=== PATIENT | male | born 1950 | race Two or more races ===

== ENCOUNTER 2025-03-20 06:12 | Inpatient (IN) | payer OTHER, MEDICARE ==
[2025-03-18 11:35] LABS: Nucleated Red Blood Cells % 0.0 %
[2025-03-18 11:36] LABS: Hematocrit 29.9 % (41.0-53.0); Hemoglobin 10.0 g/dL (13.5-17.5); Mean Corpuscular Hemoglobin 26.4 pg (28.0-32.0); Mean Corpuscular Volume 79.2 fL (80.0-100.0)
[2025-03-18 11:40] LABS: Urine Protein, UAD Negative (Negative)
[2025-03-18 11:49] LABS: INR 1.07 (0.9-1.15); Partial Thromboplastin Time 32.1 SEC (24.5-34.5); Prothrombin Time 11.3 sec (9.3-11.8)
[2025-03-18 12:07] LABS: Albumin 4.0 g/dL (3.2-4.8); Alkaline Phosphatase 88 U/L (46-116); Anion Gap 9 (5-15); BUN/Creatinine Ratio 5.9 (10.0-20.0); Bilirubin, Total 0.3 mg/dL (0.2-1.0); Calcium 9.5 mg/dL (8.7-10.4); Carbon Dioxide 26 mmol/L (20-31); Chloride 102 mmol/L (98-107); Glucose 96 mg/dL (74-106); Potassium 4.8 mmol/L (3.5-5.1); Sodium 137 mmol/L (136-145); Total Protein 7.0 g/dL (5.7-8.2)
[2025-03-18 12:08] LABS: Alanine Aminotransferase < 9 U/L (7-40); Blood Urea Nitrogen 5 mg/dL (9-23)
[2025-03-20] VITALS (16 sets, daily range): BP systolic 139–178; BP diastolic 61–85; PULSE 67–105; RESP 12–25; TEMP 97.6; O2SAT 91–99
[~2025-03-20] VITALS: Ht 175.3 cm; Wt 60.5 kg
[~2025-03-20 06:12] MED LIST: FERR-7 PO; GABA300C PO; HYDR1TAB97 PO; LISI20TA56 PO; TRAM50TA2 PO
[2025-03-20] MEDS ORDERED: ONDANSETRON HCL 4 MG/2 ML VIAL ONE ×2 (08:02→09:11)
[2025-03-20] MEDS ORDERED: LIDOCAINE 1% INJ PF 5ML AMP ONE (08:02)
[2025-03-20] MEDS ORDERED: ETOMIDATE (2MG/ML) 20ML VIAL IV ONE (08:02)
[2025-03-20] MEDS ORDERED: SODIUM CHLORIDE LOCK 40 ML ONE (08:02)
[2025-03-20] MEDS ORDERED: fentaNYL CITRATE 100 MCG/2 ML VL ONE (08:02)
[2025-03-20] MEDS ORDERED: ROCURONIUM 10MG/ML 10ML VIAL IV ONE ×2 (08:02→09:11)
[2025-03-20] MEDS ORDERED: LIDOCAINE HCL 2% TOP JELLY 5ML TOP ONE (08:02)
[2025-03-20] MEDS ORDERED: MIDAZOLAM HCL 2MG/2ML 2ml VIAL (1mg/ml) ONE ×2 (08:02→08:22)
[2025-03-20] MEDS ORDERED: KETAMINE 50mg/ML 1ml syringe ONE (08:02)
[2025-03-20] MEDS ORDERED: HYDROmorphone HCL 2 MG/ML VL/or syr ONE ×2 (08:02→08:22)
[2025-03-20] MEDS ORDERED: PROPOFOL 10 MG/ML 20 ML IV ONE (08:44)
[2025-03-20] MEDS ORDERED: hydrALAZINE HCL 20 MG/ML VL IV PRN ×2 (09:00→10:15)
[2025-03-20] MEDS ORDERED: MORPHINE SULFATE 4 MG/ML SYR/VIAL IV PRN (09:00)
[2025-03-20] MEDS ORDERED: MIDAZOLAM HCL 2MG/2ML 2ml VIAL (1mg/ml) IV PRN ×2 (09:00→10:15)
[2025-03-20] MEDS ORDERED: ONDANSETRON HCL 4 MG/2 ML VIAL IV PRN ×3 (09:00→10:15)
[2025-03-20] MEDS: BUPIVACAINE 0.5% P/F INJ 10 ML VIAL ONE (09:40)
[2025-03-20] MEDS ORDERED: SUGAMMADEX 200mg/2ml Vial (100MG/ML) IV ONE (09:43)
[2025-03-20] MEDS ORDERED: LABETALOL HCL 20 MG/4 ML VL IV SCH (10:15)
[2025-03-20] MEDS: HYDROmorphone HCL 2 MG/ML VL/or syr IV PRN ×2 (10:16→14:15)
[2025-03-20] MEDS: ACETAMINOPHEN IV 100 ML IV ONE (10:23)
[2025-03-20] MEDS ORDERED: LABETALOL HCL 20 MG/4 ML VL IV PRN ×2 (10:45→16:00)
[2025-03-20] MEDS: ACETAMINOPHEN IV 1000 MG/100ML (10MG/ML) IV ONE (10:47)
--- NOTE | 2025-03-20 11:11 | DVHOP ---
DATE OF SURGERY: 03/20/2025 PREOPERATIVE DIAGNOSIS: Dysplasia, left colon. POSTOPERATIVE DIAGNOSIS: Left colon cancer with metastasis. SURGEON: Tong Garcia MD RETURNED MATERIALS INSPECTOR: Francois Moreau NP. ANESTHESIA: General endotracheal. ANESTHESIOLOGIST: Dr. Maza. PROCEDURES: * Exploratory laparotomy. * Left hemicolectomy. * Colocolostomy. DESCRIPTION OF PROCEDURE: Under general endotracheal anesthesia with the patient's skin prepped and draped, a midline incision was made. Visual and manual inspection of the abdominal cavity was undertaken. Exploration revealed several lesions in the left and right lobes of the liver. The patient also had a very large tumor in the mid descending colon which was tattooed by the high school principal during a colonoscopic examination in the recent past. The colon was mobilized by incision along the white line of Toldt. The mesocolon was then divided between clamps and ligated. The descending colon just distal to the splenic flexure was transected with a KIMBERLY stapler as was the mid sigmoid rectal segment and the specimen was then removed from the field. There was a peritoneal implant which was excised for biopsy separately. The incision was purposely left small and in the lower abdomen and for this reason the hepatic lesions which were palpably malignant were not accessible for biopsy. The colon was then anastomosed by stapled anastomosis between the descending colon and the rectosigmoid segment utilizing the KIMBERLY stapler through small colotomy. Colotomies and the defect in the colon were closed likewise with a stapling device. Mesocolic defect was approximated using 2-0 Monocryl suture. The anastomosis was palpated and appeared to be widely patent. By propelling contents of the colon through the anastomosis, there was no evidence of leakage. A 10-mm Berhane-Fitzgerald drain was then placed to the vicinity, but not abutting against the anastomosis. The abdomen and pelvis were irrigated. Irrigant was aspirated. Hemostasis was meticulously accomplished and found to be complete. Closure was accomplished utilizing #1 double-stranded PDS suture and metallic skin shirlene. The drain was secured through a separate incision with a 3-0 nylon suture. The patient remained stable throughout the procedure, left the operating room following an accurate needle and sponge count. His was thoroughly informed in the waiting room. She was told that the lesion is visibly and palpably malignant and that there was evidence of metastatic implants throughout the peritoneal cavity which were not necessarily accessible by palpation due to the small incision in the lower abdomen. She requested that I do not tell the patient. She wants to tell him herself what the findings were. MD AIYANA Vuong/MORENO/ANNIE TID: [id number] RECEIPT: [id number]
[2025-03-20] MEDS: ceFAZolin 2 GM/D5W50ml 50 ML IV ONE (11:34)
[2025-03-20] MEDS: LIDOCAINE W/ EPINEPHRINE 1% 20ML VIAL ONE (11:35)
[2025-03-20] MEDS: POVIDONE IODINE 10 % TOPICAL OINT 30GM TOP ONE (11:35)
[2025-03-20] MEDS: D5W/SOD CHL 0.45%/KCL 20MEQ 1,000 ML IV SCH ×2 (11:43→17:07)
[2025-03-20] MEDS: levETIRAcetam 500 mg/100ml 100 ML IV SCH (12:10)
[2025-03-20] MEDS: ceFAZolin 2 GM/D5W50ml 50 ML IV SCH (13:53)
[2025-03-20] MEDS ORDERED: NITROGLYCERIN 0.4 MG SL TAB SL PRN ×2 (15:45)
[2025-03-20] MEDS ORDERED: MORPHINE SULFATE INJ 2 MG/ml SYRG IV PRN ×2 (15:45)
--- NOTE | 2025-03-20 15:49 | DVHHP2 ---
Review of Systems Allergies: Coded Allergies: NO KNOWN ALLERGIES (Unverified , 03/18/25) Medications Current Medications Medications Dose Ordered Sig/Lester Route Start Time Stop Time Status Last Admin Dose Admin Labetalol HCl 10 mg ONCE IV 03/20/25 10:15 UNV Cefazolin Sodium/ Dextrose 50 ml @ 50 mls/hr Q8HR IV 03/20/25 14:00 03/20/25 13:53 50 MLS/HR Metronidazole 100 ml @ 100 mls/hr Q8HR IV 03/20/25 14:00 03/20/25 13:43 100 MLS/HR Ondansetron HCl 4 mg Q4HPRN PRN IV 03/20/25 10:00 Levetiracetam 100 ml @ 400 mls/hr BID IV 03/20/25 10:00 03/20/25 12:10 400 MLS/HR Labetalol HCl 10 mg [id number] PRN IV 03/20/25 10:45 03/20/25 23:59 Nitroglycerin 0.4 mg Q5MINP PRN SL 03/20/25 15:45 UNV Morphine Sulfate 2 mg Q30M PRN IV 03/20/25 15:45 UNV Nitroglycerin 0.4 mg Q5MINP PRN SL 03/20/25 15:45 UNV Morphine Sulfate 2 mg Q30M PRN IV 03/20/25 15:45 UNV Potassium Chloride/Dextrose/ Sod Cl 1,000 ml @ 100 mls/hr Q10H IV 03/20/25 15:45 UNV Morphine Sulfate 2 mg Q4HPRN PRN IV 03/20/25 15:45 UNV Ondansetron HCl 4 mg Q6HPRN PRN IV 03/20/25 15:45 UNV Exam Vital Signs Vital Signs Date Time Temp Pulse Resp B/P (MAP) Pulse Ox O2 Delivery O2 Flow Rate FiO2 03/20/25 15:00 89 15 136/72 (93) 100 03/20/25 09:55 Mask 9.0 03/20/25 09:55 97.8 97.8 03/20/25 09:55 99 Labs/Xrays Labs Test 03/18/25 11:20 Range/Units White Blood Count 7.7 4.4-10.8 10^3/uL Red Blood Count 3.77 L 4.5-5.90 10^6/uL Hemoglobin 10.0 L 13.5-17.5 g/dL Hematocrit 29.9 L 41.0-53.0 % Mean Corpuscular Volume 79.2 L 80.0-100.0 fL Mean Corpuscular Hemoglobin 26.4 L 28.0-32.0 pg Mean Corpuscular Hemoglobin Concent 33.3 32.0-36.0 g/dL Red Cell Distribution Width 17.1 H 11.8-14.3 % Platelet Count 176 140-450 10^3/uL Mean Platelet Volume 8.8 6.9-10.8 fL Neutrophils (%) (Auto) 74.6 37.0-80.0 % Lymphocytes (%) (Auto) 17.0 10.0-50.0 % Monocytes (%) (Auto) 7.4 0.0-12.0 % Eosinophils (%) (Auto) 0.8 0.0-7.0 % Basophils (%) (Auto) 0.2 0.0-2.0 % Neutrophils # (Auto) 5.7 1.6-8.6 10 ^3/uL Lymphocytes # (Auto) 1.3 0.4-5.4 10 ^3/uL Monocytes # (Auto) 0.6 0-1.3 10 ^3/uL Eosinophils # (Auto) 0.1 0-0.8 10 ^3/uL Basophils # (Auto) 0 0-0.2 10 ^3/uL Nucleated Red Blood Cells 0.0 % Prothrombin Time 11.3 9.3-11.8 sec Prothrombin Time INR 1.07 0.9-1.15 Activated Partial Thromboplast Time 32.1 24.5-34.5 SEC Urine Color Light-yellow Yellow Urine Clarity Clear Clear Urine pH 6.0 5.0-9.0 Urine Specific Lind 1.006 1.001-1.035 Urine Protein Negative Negative Urine Ketones Negative Negative Urine Blood Negative Negative /uL Urine Nitrite Negative Negative Urine Bilirubin Negative Negative Urine Urobilinogen Normal Negative mg/dL Urine Leukocyte Esterase Negative Negative /uL Urine RBC None seen 0 - 3 /hpf Urine Microscopic WBC 1 0-3 /HPF Urine Squamous Epithelial Cells None seen <5 /hpf Urine Bacteria None seen None Seen /hpf Urine Glucose Normal Normal mg/dL Sodium Level 137 136-145 mmol/L Potassium Level 4.8 3.5-5.1 mmol/L Chloride Level 102 98-107 mmol/L Carbon Dioxide Level 26 20-31 mmol/L Anion Gap 9 5-15 Blood Urea Nitrogen 5 L 9-23 mg/dL Creatinine 0.85 0.700-1.30 mg/dL Glomerular Filtration Rate Calc 90 >90 mL/min BUN/Creatinine Ratio 5.9 L 10.0-20.0 Serum Glucose 96 74-106 mg/dL Calcium Level 9.5 8.7-10.4 mg/dL Total Bilirubin 0.3 0.2-1.0 mg/dL Aspartate Amino Transferase (AST) 11 L 13-40 U/L Alanine Aminotransferase (ALT) < 9 7-40 U/L Alkaline Phosphatase 88 46-116 U/L Total Protein 7.0 5.7-8.2 g/dL Albumin 4.0 3.2-4.8 g/dL SEPSIS Sepsis Screen Physician Orders Oxygen By Face Mask (03/20/25 08:55) Oxygen By Nasal Cannula (03/20/25 08:55) Physics Faculty Member (03/20/25 08:55) Notify Anesth. For Changes: (03/20/25 08:55) Pulse Ox Assessment (03/20/25 08:55) May Have Head Of Bed Up (03/20/25 08:55) Continue Present Iv (03/20/25 08:55) Follow Iv With Surgeon Orders (03/20/25 08:55) Discharge To Room Per Criteria (03/20/25 08:55) Npo Except Ice Chips (03/20/25 09:55) Ng To Lcs (03/20/25 09:55) Abdominal Binder (03/20/25 09:55) Hima To Bulb Suction (03/20/25 09:55) Sequential Compression Device (03/20/25 09:55) D5w/Sod Chl 0.45%/Kcl 20meq (03/20/25 10:00) Cefazolin 2 Gm/G9r67nm (Ancef) (03/20/25 14:00) Metronidazole 500mg/100ml (Flagyl 500mg/ (03/20/25 14:00) Ondansetron Hcl (Zofran) (03/20/25 10:00) Levetiracetam 500 Mg/100ml (Levetiraceta (03/20/25 10:00) Call/Page Hospitalist/Atten Fo (03/20/25 09:55) Page Hospitalist For Admission (03/20/25 09:55) Insert Jiménez Catheter QSHIFT (03/20/25 09:55) Labetalol Hcl (Labetalol Hcl) (03/20/25 10:45) Transfer Orders (03/20/25 14:08) Admit (03/20/25 15:42) Nitroglycerin Sublingual (Ntrostat Subli (03/20/25 15:45) Morphine Sulfate Injection (03/20/25 15:45) Stat Ekg For Chest Pain (03/20/25 15:42) Notify Md Of Changes From Base (03/20/25 15:42) Psychological Operations Specialist For 24 Hours (03/20/25 15:42) Emergency Dysrhythmia Protocol (03/20/25 15:42) Rhythm Strips Once Every Shift (03/20/25 15:42) Oxygen By Nasal Cannula (03/20/25 15:42) Admit (03/20/25 15:41) Oxygen By Nasal Cannula (03/20/25 15:41) Nitroglycerin Sublingual (Ntrostat Subli (03/20/25 15:45) Morphine Sulfate Injection (03/20/25 15:45) Stat Ekg For Chest Pain (03/20/25 15:41) Notify Md Of Changes From Base (03/20/25 15:41) Psychological Operations Specialist For 24 Hours (03/20/25 15:41) Emergency Dysrhythmia Protocol (03/20/25 15:41) Rhythm Strips Once Every Shift (03/20/25 15:41) D5 1/2 Ns Potassium 20meq (03/20/25 15:45) Morphine Sulfate Injection (03/20/25 15:45) Ondansetron Hcl (Zofran) (03/20/25 15:45) Pantoprazole (Protonix) (03/21/25 10:00) Complete Blood Count (03/21/25 06:00) Comprehensive Metabolic Panel (03/21/25 06:00) Chest Portable (03/21/25 06:00) Labetalol Hcl (Labetalol Hcl) (03/20/25 16:00) Vital Signs Date Time Temp Pulse Resp B/P (MAP) Pulse Ox O2 Delivery O2 Flow Rate FiO2 03/20/25 15:00 89 15 136/72 (93) 100 03/20/25 14:30 89 19 147/94 (111) 100 03/20/25 14:00 86 13 141/71 (94) 100 03/20/25 13:30 88 12 138/78 (98) 97 03/20/25 12:40 90 12 125/65 (85) 99 03/20/25 12:10 90 15 125/65 (85) 94 03/20/25 11:40 91 15 178/73 (108) 100 03/20/25 11:10 99 14 145/65 (91) 96 03/20/25 10:58 101 20 155/77 03/20/25 10:40 91 15 178/73 (108) 100 03/20/25 10:30 87 15 173/79 03/20/25 10:25 112 18 194/85 (121) 100 03/20/25 10:16 109 22 190/74 03/20/25 10:10 109 22 190/74 (112) 100 03/20/25 10:05 101 28 200/91 (127) 99 03/20/25 10:00 91 25 197/88 (124) 94 03/20/25 09:55 91 22 99 Mask 9.0 03/20/25 09:55 97.8 81 22 188/93 (124) 99 97.8 03/20/25 09:55 Mask 9.0 99 Medications Medications Dose Ordered Sig/Lester Route Start Time Stop Time Status Last Admin Dose Admin Acetaminophen 1,000 mg ONCE ONCE IV 03/20/25 10:15 03/20/25 10:26 DC 03/20/25 10:47 1,000 MG Bupivacaine HCl 10 ml STK-MED ONCE .ROUTE 03/20/25 08:00 03/20/25 07:57 DC 03/20/25 09:40 5 ML Cefazolin Sodium/ Dextrose 50 ml @ 50 mls/hr Q8HR IV 03/20/25 14:00 03/20/25 13:53 50 MLS/HR Hydromorphone HCl 0.5 mg Q10M PRN IV 03/20/25 09:00 03/20/25 09:41 DC 03/20/25 10:58 0.5 MG Hydromorphone HCl 0.5 mg Q10M PRN IV 03/20/25 12:30 03/20/25 12:31 DC 03/20/25 14:15 0.5 MG Levetiracetam 100 ml @ 400 mls/hr BID IV 03/20/25 10:00 03/20/25 12:10 400 MLS/HR Metronidazole 100 ml @ 100 mls/hr Q8HR IV 03/20/25 14:00 03/20/25 13:43 100 MLS/HR Potassium Chloride/Dextrose/ Sod Cl 1,000 ml @ 120 mls/hr Q8H20M IV 03/20/25 10:00 03/20/25 15:48 DC 03/20/25 11:43 120 MLS/HR Assessment/Plan Assessment/Plan see dictated note Plan discussed with: Patient, Spouse My Orders Orders - ARUN TORRES MD Procedure Category Date Status Time Admit ADMIT 03/20/25 Transmitted 15:42 Nitroglycerin PHA 03/20/25 Logged Sublingual (Ntrostat 15:45 Morphine Sulfate PHA 03/20/25 Logged Injection 15:45 Stat Ekg For Chest LEATHA 03/20/25 In Process Pain 15:42 Notify Md Of Changes LEATHA 03/20/25 In Process From Base 15:42 Psychological Operations Specialist For LEATHA 03/20/25 In Process 24 Hours 15:42 Emergency Dysrhythmia LEATHA 03/20/25 In Process Protocol 15:42 Rhythm Strips Once LEATHA 03/20/25 In Process Every Shift 15:42 Oxygen By Nasal RT 03/20/25 Transmitted Cannula 15:42 Admit ADMIT 03/20/25 Transmitted 15:41 Oxygen By Nasal RT 03/20/25 Transmitted Cannula 15:41 Nitroglycerin PHA 03/20/25 Logged Sublingual (Ntrostat 15:45 Morphine Sulfate PHA 03/20/25 Logged Injection 15:45 Stat Ekg For Chest LEATHA 03/20/25 In Process Pain 15:41 Notify Md Of Changes [facility] [place] 03/20/25 In Process From Base 15:41 Psychological Operations Specialist For LEATHA 03/20/25 In Process 24 Hours 15:41 Emergency Dysrhythmia LEATHA 03/20/25 In Process Protocol 15:41 Rhythm Strips Once LEATHA 03/20/25 In Process Every Shift 15:41 D5 1/2 Ns Potassium PHA 03/20/25 Transmitted 20meq 15:45 Morphine Sulfate PHA 03/20/25 Transmitted Injection 15:45 Ondansetron Hcl PHA 03/20/25 Transmitted (Zofran) 15:45 Pantoprazole PHA 03/21/25 Transmitted (Protonix) 10:00 Complete Blood Count LAB 03/21/25 Verified 06:00 Comprehensive LAB 03/21/25 Verified Metabolic Panel 06:00 Chest Portable XY 03/21/25 Logged 06:00 Labetalol Hcl PHA 03/20/25 Verified (Labetalol Hcl) 16:00 Date of Service: Mar 20, 2025 Billing Provider: ARUN TORRES MD Common Visit Codes: [id number] INP/OBS CARE (HIGH) ARUN TORRES MD Mar 20, 2025 15:49
--- NOTE | 2025-03-20 15:51 | CODING ---
Date of Service: Mar 20, 2025 Billing Provider: ARUN TORRES MD Common Visit Codes: [id number] INP/OBS CARE (HIGH) Secondary Visit Codes: [id number] CARE PLAN 30 MINUTES ARUN TORRES MD Mar 20, 2025 15:51
--- NOTE | 2025-03-20 16:03 | DVHHP ---
ADMIT DATE: 03/20/2025 HISTORY OF PRESENT ILLNESS: The patient is a 75-year-old gentleman who was admitted after he underwent surgery for left hemicolectomy for left colon cancer with metastasis. The patient denies pain in the left lower quadrant. No chest pain, no shortness of breath, no nausea or vomiting. REVIEW OF REST OF SYSTEMS: Otherwise currently negative. PAST MEDICAL HISTORY: Significant for hypertension, PTSD, likely seizure disorder. MEDICATIONS: Listed include gabapentin, [place], lisinopril. ALLERGIES: No known drug allergies. SOCIAL HISTORY: Denies smoking or alcohol. Lives at home with his . FAMILY HISTORY: Negative. PHYSICAL EXAMINATION: GENERAL: The patient is awake, alert. VITAL SIGNS: Temperature of 97.8, pulse of 90 per minute, blood pressure 138/78. SHEENT: Unremarkable. NECK: There is no JVD. No pedal edema. LUNGS: Equal bilaterally. No added sounds. CARDIOVASCULAR: S1 and S2 regular. No murmurs. ABDOMEN: Soft. Bowel sounds are absent. There is RAÚL drains in place. NEUROLOGIC: Nonfocal. MUSCULOSKELETAL: Normal. ASSESSMENT AND PLAN: * Hypertension for which he will be placed on as-needed labetalol. * Seizure disorder. * Posttraumatic stress disorder. * Colon cancer, status post hemicolectomy for which he will be placed on IV fluids along with pain medications. * Advanced care planning: The patient is a full code-Time spent was 18 minutes. MD CINDY Clemons/RORY TID: [id number] RECEIPT: [id number] [facility]
[2025-03-20] MEDS: MORPHINE SULFATE INJ 2 MG/ml SYRG IV PRN (17:17)
[2025-03-20] MEDS: MORPHINE SULFATE INJ 2 MG/ml SYRG IV ONE (20:22)
[2025-03-20] MEDS: hydrALAZINE HCL 20 MG/ML VL IV PRN (21:20)
[2025-03-21] VITALS (28 sets, daily range): BP systolic 101–166; BP diastolic 52–134; PULSE 62–109; RESP 10–26; TEMP 97.7–98.7; O2SAT 93–100
--- NOTE | 2025-03-21 05:41 | DVH ---
CHEST RADIOGRAPH Indication: htn Technique: Single frontal view of the chest was obtained COMPARISON: XY CHEST TWO VIEWS ROUTINE on DOS: 03/18/25 FINDINGS: Lines and Tubes: Enteric catheter side port at the GE junction Lungs: Bibasilar subsegmental atelectasis Pleura: No effusion. No pneumothorax. Cardiomediastinal contours: Unremarkable Bones: Unremarkable IMPRESSION: Recommend advancement of enteric catheter by 3 cm.
[2025-03-21] MEDS: ONDANSETRON HCL 4 MG/2 ML VIAL IV PRN (05:56)
[2025-03-21 06:36] LABS: Hemoglobin 10.3 g/dL (13.5-17.5); Nucleated Red Blood Cells % 0.0 %
[2025-03-21 06:41] LABS: Hematocrit 30.7 % (41.0-53.0); Mean Corpuscular Hemoglobin 26.3 pg (28.0-32.0); Mean Corpuscular Volume 78.5 fL (80.0-100.0)
[2025-03-21 06:53] LABS: Alkaline Phosphatase 78 U/L (46-116); Anion Gap 11 (5-15); Calcium 9.2 mg/dL (8.7-10.4); Carbon Dioxide 26 mmol/L (20-31); Potassium 4.2 mmol/L (3.5-5.1); Total Protein 6.2 g/dL (5.7-8.2)
[2025-03-21 06:54] LABS: Albumin 3.7 g/dL (3.2-4.8)
[2025-03-21 07:00] LABS: BUN/Creatinine Ratio 6.8 (10.0-20.0); Blood Urea Nitrogen < 5 mg/dL (9-23); Chloride 98 mmol/L (98-107); Glucose 149 mg/dL (74-106); Sodium 135 mmol/L (136-145)
[2025-03-21 07:01] LABS: Alanine Aminotransferase < 9 U/L (7-40); Bilirubin, Total 0.3 mg/dL (0.2-1.0)
[2025-03-21] MEDS ORDERED: SORE THROAT SPRAY 6OZ BOTTLE MT PRN (09:15)
[2025-03-21] MEDS ORDERED: PROMETHAZINE-DM 5 ML ORAL SYRUP NG PRN (09:15)
--- NOTE | 2025-03-21 09:31 | DVHPN2 ---
Progress Note Date Seen: Mar 21, 2025 Medical Necessity Reason Pt with a Central, PICC or Fol: No Objective vital signs Vital Sign Date Time Temp Pulse Resp B/P (MAP) Pulse Ox O2 Delivery O2 Flow Rate FiO2 03/21/25 08:00 98.0 85 21 142/60 (87) 96 98.0 03/20/25 20:00 Nasal Cannula* 2 28 Total Intake and Output 03/20/25 03/20/25 03/21/25 15:00 23:00 07:00 Intake Total 820 ml 930 ml Output Total 340 ml 500 ml 1000 ml Balance -340 ml 320 ml -70 ml medications Current Medications Medications Dose Ordered Sig/Lester Route Start Time Stop Time Status Last Admin Dose Admin Labetalol HCl 10 mg ONCE IV 03/20/25 10:15 UNV Cefazolin Sodium/ Dextrose 50 ml @ 50 mls/hr Q8HR IV 03/20/25 14:00 03/21/25 06:36 50 MLS/HR Metronidazole 100 ml @ 100 mls/hr Q8HR IV 03/20/25 14:00 03/21/25 05:51 100 MLS/HR Levetiracetam 100 ml @ 400 mls/hr BID IV 03/20/25 10:00 03/20/25 21:00 400 MLS/HR Labetalol HCl 10 mg [id number] PRN IV 03/20/25 10:45 03/20/25 23:59 Cancel Nitroglycerin 0.4 mg Q5MINP PRN SL 03/20/25 15:45 Morphine Sulfate 2 mg Q30M PRN IV 03/20/25 15:45 Potassium Chloride/Dextrose/ Sod Cl 1,000 ml @ 100 mls/hr Q10H IV 03/20/25 15:45 03/21/25 06:21 100 MLS/HR Ondansetron HCl 4 mg Q6HPRN PRN IV 03/20/25 15:45 03/21/25 05:56 4 MG Pantoprazole Sodium 40 mg DAILY IV 03/21/25 10:00 Labetalol HCl 10 mg Q4HP PRN IV 03/20/25 16:00 Hydralazine HCl 10 mg Q6HP PRN IV 03/20/25 21:00 03/21/25 04:23 10 MG Morphine Sulfate 4 mg Q4HPRN PRN IV 03/21/25 06:45 Phenol/Menthol 1 spr Q2HP PRN MT 03/21/25 09:15 UNV Promethazine HCl/ Dextromethorphan 5 ml Q4HP PRN NG 03/21/25 09:15 UNV laboratory and microbiology Laboratory Tests 03/21/25 05:43 Test 03/21/25 05:43 Range/Units Serum Glucose 149 H 74-106 mg/dL Problem List/Assessment/Plan Problem List/Assessment/Plan 03/21/25 c/o throat discomfort, explained need for NGT, abdomen soft, appropriately tender, will give choraceptic spray to ease throat discomfort, needs to get out of bed Plan discussed with: Patient, Spouse NANCY JOSÉ MD Mar 21, 2025 09:31
[2025-03-21] MEDS: PANTOPRAZOLE 40 MG/10 ML VIAL INJ IV SCH (10:22)
[2025-03-21] MEDS: SORE THROAT SPRAY 6OZ BOTTLE MT PRN (12:32)
[2025-03-21] MEDS: MORPHINE SULFATE 4 MG/ML SYR/VIAL IV PRN (12:33)
--- NOTE | 2025-03-21 16:40 | DVHPN2 ---
Progress Note Date Seen: Mar 21, 2025 Medical Necessity Reason Pt with a Central, PICC or Fol: No Subjective Patient reports: Feels better (Intrathecal intact draining dark fluids) Objective vital signs Vital Sign Date Time Temp Pulse Resp B/P (MAP) Pulse Ox O2 Delivery O2 Flow Rate FiO2 03/21/25 14:00 69 21 164/67 (99) 100 03/21/25 12:00 97.7 97.7 03/21/25 08:00 Nasal Cannula* 2 28 Total Intake and Output 03/20/25 03/20/25 03/21/25 15:00 23:00 07:00 Intake Total 820 ml 930 ml Output Total 340 ml 500 ml 1000 ml Balance -340 ml 320 ml -70 ml medications Current Medications Medications Dose Ordered Sig/Lester Route Start Time Stop Time Status Last Admin Dose Admin Labetalol HCl 10 mg ONCE IV 03/20/25 10:15 UNV Cefazolin Sodium/ Dextrose 50 ml @ 50 mls/hr Q8HR IV 03/20/25 14:00 03/21/25 13:29 50 MLS/HR Metronidazole 100 ml @ 100 mls/hr Q8HR IV 03/20/25 14:00 03/21/25 13:29 100 MLS/HR Levetiracetam 100 ml @ 400 mls/hr BID IV 03/20/25 10:00 03/21/25 10:20 400 MLS/HR Labetalol HCl 10 mg [id number] PRN IV 03/20/25 10:45 03/20/25 23:59 Cancel Nitroglycerin 0.4 mg Q5MINP PRN SL 03/20/25 15:45 Morphine Sulfate 2 mg Q30M PRN IV 03/20/25 15:45 Potassium Chloride/Dextrose/ Sod Cl 1,000 ml @ 100 mls/hr Q10H IV 03/20/25 15:45 03/21/25 06:21 100 MLS/HR Ondansetron HCl 4 mg Q6HPRN PRN IV 03/20/25 15:45 03/21/25 12:32 4 MG Pantoprazole Sodium 40 mg DAILY IV 03/21/25 10:00 03/21/25 10:22 40 MG Labetalol HCl 10 mg Q4HP PRN IV 03/20/25 16:00 Hydralazine HCl 10 mg Q6HP PRN IV 03/20/25 21:00 03/21/25 04:23 10 MG Morphine Sulfate 4 mg Q4HPRN PRN IV 03/21/25 06:45 03/21/25 12:33 4 MG Phenol/Menthol 1 spr Q2HP PRN MT 03/21/25 09:15 UNV Promethazine HCl/ Dextromethorphan 5 ml Q4HP PRN NG 03/21/25 09:15 Phenol/Menthol 1 spr Q2HP PRN MT 03/21/25 09:30 03/21/25 12:32 1 SPR Examination: GENERAL:Normal (Possible NG tube intact draining dark fluids), HEENT:Normal, NECK:Normal, LUNGS:Normal, CVS:Normal, ABDOMEN:Abnormal (Pain with a palpation. Colostomy bag), MSK:Normal, SKIN:Normal, NEURO:Normal laboratory and microbiology Laboratory Tests 03/21/25 05:43 Test 03/21/25 05:43 Range/Units Serum Glucose 149 H 74-106 mg/dL Microbiology Date/Time Source Procedure Growth Status 03/21/25 06:50 Nose MRSA Screen - Final Complete Problem List/Assessment/Plan Problems(with codes): (1) Cancer of left colon Problem List/Assessment/Plan Left colon cancer status post mental status Left hemicolectomy Colostomy IV fluids NG tube intact Pain control Full code Heparin for DVT prophylaxis No GI prophylaxis needed Plan discussed with: Patient, Spouse Date of Service: Mar 21, 2025 Billing Provider: LACIE LOPEZ MD Common Visit Codes: [id number] INP/OBS CARE(HIGH) LACIE LOPEZ MD Mar 21, 2025 16:40
[2025-03-21] MEDS: SODIUM CHLORIDE 0.9% 1,000 ML IV SCH (19:28)
[2025-03-21] MEDS: HEPARIN SODIUM (PORCINE) 5000 UNITS/ML 1ML VIAL SC SCH (21:40)
[2025-03-22] VITALS (21 sets, daily range): BP systolic 113–157; BP diastolic 50–71; PULSE 67–91; RESP 1–22; TEMP 97.7–98.8; O2SAT 91–100
[2025-03-22 05:35] LABS: Hematocrit 27.8 % (41.0-53.0); Hemoglobin 9.4 g/dL (13.5-17.5); Mean Corpuscular Hemoglobin 27.0 pg (28.0-32.0); Mean Corpuscular Volume 80.3 fL (80.0-100.0); Nucleated Red Blood Cells % 0.0 %
[2025-03-22 05:50] LABS: Alkaline Phosphatase 66 U/L (46-116); Anion Gap 8 (5-15); Calcium 9.0 mg/dL (8.7-10.4); Carbon Dioxide 27 mmol/L (20-31); Chloride 103 mmol/L (98-107); Glucose 97 mg/dL (74-106); Potassium 4.2 mmol/L (3.5-5.1); Sodium 138 mmol/L (136-145)
[2025-03-22 05:51] LABS: Alanine Aminotransferase < 9 U/L (7-40); Albumin 3.2 g/dL (3.2-4.8); BUN/Creatinine Ratio 7.1 (10.0-20.0); Bilirubin, Total 0.3 mg/dL (0.2-1.0); Blood Urea Nitrogen < 5 mg/dL (9-23); Total Protein 5.5 g/dL (5.7-8.2)
[2025-03-22] MEDS: KETOROLAC TROMETH 30 MG/ML 1ML VIAL IV PRN (13:54)
--- NOTE | 2025-03-22 17:03 | DVHPN2 ---
Progress Note Date Seen: Mar 22, 2025 Medical Necessity Reason Pt with a Central, PICC or Fol: No Subjective Patient reports: Feels better (Patient has been able to ambulate. Pain is improving as well. No fever or chills overnight) Objective vital signs Vital Sign Date Time Temp Pulse Resp B/P (MAP) Pulse Ox O2 Delivery O2 Flow Rate FiO2 03/22/25 15:55 70 03/22/25 15:00 14 118/58 (78) 99 03/22/25 12:00 98.2 98.2 03/22/25 07:30 Room Air* 0 21 Total Intake and Output 03/21/25 03/21/25 03/22/25 15:00 23:00 07:00 Intake Total 1100 ml 810 ml 750 ml Output Total 1525 ml 1430 ml Balance 1100 ml -715 ml -680 ml medications Current Medications Medications Dose Ordered Sig/Lester Route Start Time Stop Time Status Last Admin Dose Admin Labetalol HCl 10 mg ONCE IV 03/20/25 10:15 UNV Cefazolin Sodium/ Dextrose 50 ml @ 50 mls/hr Q8HR IV 03/20/25 14:00 03/22/25 15:53 50 MLS/HR Metronidazole 100 ml @ 100 mls/hr Q8HR IV 03/20/25 14:00 03/22/25 14:05 100 MLS/HR Levetiracetam 100 ml @ 400 mls/hr BID IV 03/20/25 10:00 03/22/25 11:05 400 MLS/HR Labetalol HCl 10 mg [id number] PRN IV 03/20/25 10:45 03/20/25 23:59 Cancel Nitroglycerin 0.4 mg Q5MINP PRN SL 03/20/25 15:45 Morphine Sulfate 2 mg Q30M PRN IV 03/20/25 15:45 Ondansetron HCl 4 mg Q6HPRN PRN IV 03/20/25 15:45 03/21/25 12:32 4 MG Pantoprazole Sodium 40 mg DAILY IV 03/21/25 10:00 03/22/25 11:05 40 MG Labetalol HCl 10 mg Q4HP PRN IV 03/20/25 16:00 Hydralazine HCl 10 mg Q6HP PRN IV 03/20/25 21:00 03/22/25 01:13 10 MG Morphine Sulfate 4 mg Q4HPRN PRN IV 03/21/25 06:45 03/22/25 09:51 4 MG Phenol/Menthol 1 spr Q2HP PRN MT 03/21/25 09:15 UNV Promethazine HCl/ Dextromethorphan 5 ml Q4HP PRN NG 03/21/25 09:15 Phenol/Menthol 1 spr Q2HP PRN MT 03/21/25 09:30 03/21/25 12:32 1 SPR Heparin Sodium (Porcine) 5,000 units Q12HR SC 03/21/25 22:00 03/22/25 11:05 5,000 UNITS Sodium Chloride 1,000 ml @ 75 mls/hr [id number] IV 03/21/25 16:45 03/21/25 19:28 75 MLS/HR Ketorolac Tromethamine 15 mg Q6HPRN PRN IV 03/22/25 11:30 03/27/25 11:29 03/22/25 13:54 15 MG Examination: GENERAL:Normal, HEENT:Normal, NECK:Normal, LUNGS:Normal, CVS:Normal, ABDOMEN:Abnormal (Hemicolectomy. Pain is improving), MSK:Normal, SKIN:Normal, NEURO:Normal laboratory and microbiology Laboratory Tests 03/22/25 05:21 Test 03/22/25 05:21 Range/Units Serum Glucose 97 74-106 mg/dL Microbiology Date/Time Source Procedure Growth Status 03/21/25 06:50 Nose MRSA Screen - Final Complete Problem List/Assessment/Plan Problem List/Assessment/Plan Left colon cancer status post hemicolectomy Colostomy IV fluids NG tube intact Gastric juices clearing Pain control Follow with the surgeon recommendation Full code Heparin for DVT prophylaxis No GI prophylaxis needed Plan discussed with: Patient, Spouse My Orders My Orders Orders - LACIE LOPEZ MD Procedure Category Date Status Time Ketorolac Injection PHA 03/22/25 In Process (Toradol Injection) 11:30 Comprehensive LAB 03/23/25 Verified Metabolic Panel 05:00 Comprehensive LAB 03/24/25 Verified Metabolic Panel 05:00 Comprehensive LAB 03/25/25 Verified Metabolic Panel 05:00 Comprehensive LAB 03/26/25 Verified Metabolic Panel 05:00 Comprehensive LAB 03/27/25 Verified Metabolic Panel 05:00 Complete Blood Count LAB 03/23/25 Verified 05:00 Complete Blood Count LAB 03/24/25 Verified 05:00 Complete Blood Count LAB 03/25/25 Verified 05:00 Complete Blood Count LAB 03/26/25 Verified 05:00 Complete Blood Count LAB 03/27/25 Verified 05:00 Date of Service: Mar 22, 2025 Billing Provider: LACIE LOPEZ MD Common Visit Codes: [id number] INP/OBS CARE(HIGH) LACIE LOPEZ MD Mar 22, 2025 17:03
[2025-03-23] VITALS (11 sets, daily range): BP systolic 129–151; BP diastolic 61–73; PULSE 65–82; RESP 14–19; TEMP 97.7–98.3; O2SAT 92–97
[2025-03-23 06:14] LABS: Hemoglobin 8.2 g/dL (13.5-17.5)
[2025-03-23 06:16] LABS: Hematocrit 24.2 % (41.0-53.0); Mean Corpuscular Hemoglobin 27.1 pg (28.0-32.0); Mean Corpuscular Volume 79.8 fL (80.0-100.0); Nucleated Red Blood Cells % 0.0 %
[2025-03-23 06:34] LABS: Alkaline Phosphatase 63 U/L (46-116); Anion Gap 8 (5-15); BUN/Creatinine Ratio 11.4 (10.0-20.0); Carbon Dioxide 26 mmol/L (20-31); Chloride 105 mmol/L (98-107); Glucose 87 mg/dL (74-106); Potassium 3.8 mmol/L (3.5-5.1); Sodium 139 mmol/L (136-145)
[2025-03-23 06:49] LABS: Alanine Aminotransferase < 9 U/L (7-40); Albumin 3.0 g/dL (3.2-4.8); Bilirubin, Total 0.2 mg/dL (0.2-1.0); Blood Urea Nitrogen 8 mg/dL (9-23); Calcium 8.7 mg/dL (8.7-10.4); Total Protein 5.1 g/dL (5.7-8.2)
--- NOTE | 2025-03-23 11:15 | DVHPN2 ---
Progress Note Date Seen: Mar 23, 2025 Medical Necessity Reason Pt with a Central, PICC or Fol: No Objective vital signs Vital Sign Date Time Temp Pulse Resp B/P (MAP) Pulse Ox O2 Delivery O2 Flow Rate FiO2 03/23/25 09:25 98.0 74 18 150/68 (95) 94 98.0 03/23/25 08:00 Room Air* 0 21 Total Intake and Output 03/22/25 03/22/25 03/23/25 15:00 23:00 07:00 Intake Total 150 ml 150 ml Output Total 625 ml 50 ml Balance -475 ml 100 ml medications Current Medications Medications Dose Ordered Sig/Lester Route Start Time Stop Time Status Last Admin Dose Admin Labetalol HCl 10 mg ONCE IV 03/20/25 10:15 UNV Cefazolin Sodium/ Dextrose 50 ml @ 50 mls/hr Q8HR IV 03/20/25 14:00 03/23/25 05:17 50 MLS/HR Metronidazole 100 ml @ 100 mls/hr Q8HR IV 03/20/25 14:00 03/23/25 05:16 100 MLS/HR Levetiracetam 100 ml @ 400 mls/hr BID IV 03/20/25 10:00 03/23/25 10:10 400 MLS/HR Labetalol HCl 10 mg [id number] PRN IV 03/20/25 10:45 03/20/25 23:59 Cancel Nitroglycerin 0.4 mg Q5MINP PRN SL 03/20/25 15:45 Morphine Sulfate 2 mg Q30M PRN IV 03/20/25 15:45 Ondansetron HCl 4 mg Q6HPRN PRN IV 03/20/25 15:45 03/21/25 12:32 4 MG Pantoprazole Sodium 40 mg DAILY IV 03/21/25 10:00 03/23/25 10:10 40 MG Labetalol HCl 10 mg Q4HP PRN IV 03/20/25 16:00 Hydralazine HCl 10 mg Q6HP PRN IV 03/20/25 21:00 03/22/25 01:13 10 MG Morphine Sulfate 4 mg Q4HPRN PRN IV 03/21/25 06:45 03/23/25 00:05 4 MG Phenol/Menthol 1 spr Q2HP PRN MT 03/21/25 09:15 UNV Promethazine HCl/ Dextromethorphan 5 ml Q4HP PRN NG 03/21/25 09:15 Phenol/Menthol 1 spr Q2HP PRN MT 03/21/25 09:30 03/21/25 12:32 1 SPR Heparin Sodium (Porcine) 5,000 units Q12HR SC 03/21/25 22:00 03/23/25 10:39 5,000 UNITS Sodium Chloride 1,000 ml @ 75 mls/hr [id number] IV 03/21/25 16:45 03/23/25 06:51 75 MLS/HR Ketorolac Tromethamine 15 mg Q6HPRN PRN IV 03/22/25 11:30 03/27/25 11:29 03/23/25 10:10 15 MG laboratory and microbiology Laboratory Tests 03/23/25 05:44 Test 03/23/25 05:44 Range/Units Serum Glucose 87 74-106 mg/dL Problem List/Assessment/Plan Problem List/Assessment/Plan 03/21/25 c/o throat discomfort, explained need for NGT, abdomen soft, appropriately tender, will give choraceptic spray to ease throat discomfort, needs to get out of bed, 03/23/25 feels well, passed flatus, ambulated, wound ok, drainage serous, will dc ngt and allow clear liquids Plan discussed with: Patient, Spouse NANCY JOSÉ MD Mar 23, 2025 11:15
--- NOTE | 2025-03-23 14:31 | DVHPN2 ---
Progress Note Date Seen: Mar 23, 2025 Medical Necessity Reason Pt with a Central, PICC or Fol: No Subjective Patient reports: Feels better (Resting in bed. Pass flatus NG tube is removed. Patient will start clear liquid diet. Monitor for bowel movement) Objective vital signs Vital Sign Date Time Temp Pulse Resp B/P (MAP) Pulse Ox O2 Delivery O2 Flow Rate FiO2 03/23/25 13:48 98.3 76 14 137/61 (86) 92 98.3 03/23/25 08:00 Room Air* 0 21 Total Intake and Output 03/22/25 03/22/25 03/23/25 15:00 23:00 07:00 Intake Total 150 ml 150 ml Output Total 625 ml 50 ml Balance -475 ml 100 ml medications Current Medications Medications Dose Ordered Sig/Lester Route Start Time Stop Time Status Last Admin Dose Admin Labetalol HCl 10 mg ONCE IV 03/20/25 10:15 UNV Cefazolin Sodium/ Dextrose 50 ml @ 50 mls/hr Q8HR IV 03/20/25 14:00 03/23/25 05:17 50 MLS/HR Metronidazole 100 ml @ 100 mls/hr Q8HR IV 03/20/25 14:00 03/23/25 14:00 100 MLS/HR Levetiracetam 100 ml @ 400 mls/hr BID IV 03/20/25 10:00 03/23/25 10:10 400 MLS/HR Labetalol HCl 10 mg [id number] PRN IV 03/20/25 10:45 03/20/25 23:59 Cancel Nitroglycerin 0.4 mg Q5MINP PRN SL 03/20/25 15:45 Morphine Sulfate 2 mg Q30M PRN IV 03/20/25 15:45 Ondansetron HCl 4 mg Q6HPRN PRN IV 03/20/25 15:45 03/21/25 12:32 4 MG Pantoprazole Sodium 40 mg DAILY IV 03/21/25 10:00 03/23/25 10:10 40 MG Labetalol HCl 10 mg Q4HP PRN IV 03/20/25 16:00 Hydralazine HCl 10 mg Q6HP PRN IV 03/20/25 21:00 03/22/25 01:13 10 MG Morphine Sulfate 4 mg Q4HPRN PRN IV 03/21/25 06:45 03/23/25 00:05 4 MG Phenol/Menthol 1 spr Q2HP PRN MT 03/21/25 09:15 UNV Promethazine HCl/ Dextromethorphan 5 ml Q4HP PRN NG 03/21/25 09:15 Phenol/Menthol 1 spr Q2HP PRN MT 03/21/25 09:30 03/21/25 12:32 1 SPR Heparin Sodium (Porcine) 5,000 units Q12HR SC 03/21/25 22:00 03/23/25 10:39 5,000 UNITS Sodium Chloride 1,000 ml @ 75 mls/hr [id number] IV 03/21/25 16:45 03/23/25 06:51 75 MLS/HR Ketorolac Tromethamine 15 mg Q6HPRN PRN IV 03/22/25 11:30 03/27/25 11:29 03/23/25 10:10 15 MG Examination Generally 75 years old male, well nourished well developed. No apparent distress HEENT-atraumatic normocephalic Heart-regular rate and rhythm lungs clear to auscultate Abdomen-Soft nontender nondistended. Surgical site healing Musculoskeletal-no edema cyanosis Neuro-AO x3, no focal deficits laboratory and microbiology Laboratory Tests 03/23/25 05:44 Test 03/23/25 05:44 Range/Units Serum Glucose 87 74-106 mg/dL Microbiology Date/Time Source Procedure Growth Status 03/21/25 06:50 Nose MRSA Screen - Final Complete Problem List/Assessment/Plan Problem List/Assessment/Plan Left colon cancer status post hemicolectomy Colostomy IV fluids NG tube removed Starting clear liquid diet Monitor Bowel movement Pain control Follow with the surgeon recommendation Full code Heparin for DVT prophylaxis No GI prophylaxis needed Plan discussed with: Patient, Spouse Date of Service: Mar 23, 2025 Billing Provider: LACIE LOPEZ MD Common Visit Codes: [id number] INP/OBS CARE(HIGH) LACIE LOPEZ MD Mar 23, 2025 14:31
[2025-03-24] VITALS (9 sets, daily range): BP systolic 134–159; BP diastolic 59–69; PULSE 66–83; RESP 16–19; TEMP 97.4–98.3; O2SAT 93–97
[2025-03-24 07:51] LABS: Hematocrit 25.7 % (41.0-53.0); Hemoglobin 8.7 g/dL (13.5-17.5); Mean Corpuscular Hemoglobin 27.2 pg (28.0-32.0); Mean Corpuscular Volume 80.2 fL (80.0-100.0); Nucleated Red Blood Cells % 0.1 %
[2025-03-24 07:56] LABS: Alkaline Phosphatase 61 U/L (46-116); Anion Gap 9 (5-15); BUN/Creatinine Ratio 12.5 (10.0-20.0); Carbon Dioxide 25 mmol/L (20-31); Glucose 90 mg/dL (74-106); Potassium 3.6 mmol/L (3.5-5.1); Sodium 143 mmol/L (136-145)
[2025-03-24 08:07] LABS: Alanine Aminotransferase < 9 U/L (7-40); Albumin 2.9 g/dL (3.2-4.8); Bilirubin, Total 0.2 mg/dL (0.2-1.0); Blood Urea Nitrogen 8 mg/dL (9-23); Calcium 8.6 mg/dL (8.7-10.4); Chloride 109 mmol/L (98-107); Total Protein 5.2 g/dL (5.7-8.2)
--- NOTE | 2025-03-24 08:22 | DVHPN2 ---
Progress Note Date Seen: Mar 24, 2025 Medical Necessity Reason Pt with a Central, PICC or Fol: No Objective vital signs Vital Sign Date Time Temp Pulse Resp B/P (MAP) Pulse Ox O2 Delivery O2 Flow Rate FiO2 03/24/25 05:00 98.0 68 16 134/59 (84) 95 98.0 03/23/25 20:00 Room Air* 0 21 Total Intake and Output 03/23/25 03/23/25 03/24/25 15:00 23:00 07:00 Intake Total 50 ml 300 ml 200 ml Output Total 50 ml 600 ml 225 ml Balance 0 ml -300 ml -25 ml medications Current Medications Medications Dose Ordered Sig/Lester Route Start Time Stop Time Status Last Admin Dose Admin Labetalol HCl 10 mg ONCE IV 03/20/25 10:15 UNV Cefazolin Sodium/ Dextrose 50 ml @ 50 mls/hr Q8HR IV 03/20/25 14:00 03/24/25 07:02 50 MLS/HR Metronidazole 100 ml @ 100 mls/hr Q8HR IV 03/20/25 14:00 03/24/25 05:42 100 MLS/HR Levetiracetam 100 ml @ 400 mls/hr BID IV 03/20/25 10:00 03/23/25 21:15 400 MLS/HR Labetalol HCl 10 mg [id number] PRN IV 03/20/25 10:45 03/20/25 23:59 Cancel Nitroglycerin 0.4 mg Q5MINP PRN SL 03/20/25 15:45 Morphine Sulfate 2 mg Q30M PRN IV 03/20/25 15:45 Ondansetron HCl 4 mg Q6HPRN PRN IV 03/20/25 15:45 03/21/25 12:32 4 MG Pantoprazole Sodium 40 mg DAILY IV 03/21/25 10:00 03/23/25 10:10 40 MG Labetalol HCl 10 mg Q4HP PRN IV 03/20/25 16:00 Hydralazine HCl 10 mg Q6HP PRN IV 03/20/25 21:00 03/22/25 01:13 10 MG Morphine Sulfate 4 mg Q4HPRN PRN IV 03/21/25 06:45 03/23/25 21:05 4 MG Phenol/Menthol 1 spr Q2HP PRN MT 03/21/25 09:15 UNV Promethazine HCl/ Dextromethorphan 5 ml Q4HP PRN NG 03/21/25 09:15 Phenol/Menthol 1 spr Q2HP PRN MT 03/21/25 09:30 03/21/25 12:32 1 SPR Heparin Sodium (Porcine) 5,000 units Q12HR SC 03/21/25 22:00 03/23/25 21:28 5,000 UNITS Sodium Chloride 1,000 ml @ 75 mls/hr [id number] IV 03/21/25 16:45 03/23/25 06:51 75 MLS/HR Ketorolac Tromethamine 15 mg Q6HPRN PRN IV 03/22/25 11:30 03/27/25 11:29 03/23/25 16:41 15 MG laboratory and microbiology Laboratory Tests 03/24/25 06:53 Test 03/24/25 06:53 Range/Units Serum Glucose 90 74-106 mg/dL Problem List/Assessment/Plan Problem List/Assessment/Plan 03/21/25 c/o throat discomfort, explained need for NGT, abdomen soft, appropriately tender, will give choraceptic spray to ease throat discomfort, needs to get out of bed, 03/23/25 feels well, passed flatus, ambulated, wound ok, drainage serous, will dc ngt and allow clear liquids 03/24/25 passing flatus and had aBM, abdomen non distended appropriately tender, drain with serous drainage. advancxe po intake as tolerated Plan discussed with: Patient Dietary Evaluation Review Comments: 1) Encourage optimal PO intake 2) Advance to cardiac diet when medically feasible 3) Follow-up with oncology, gastroenterology, and cardiology 4) Continue to monitor I&O, labs, and skin integrity Expected Outcomes/Goals: 1) appetite and labs to improve 2) diet to advance 3) f/u in 3-5 days NANCY JOSÉ MD Mar 24, 2025 08:22
--- NOTE | 2025-03-24 10:50 | DVHPN2 ---
Progress Note Date Seen: Mar 24, 2025 Medical Necessity Reason Pt with a Central, PICC or Fol: No Subjective Patient reports: No new complaints Review of Systems: HEENT:Normal, CVS:Normal, RESPIRATORY:Normal, GI:Normal, :Normal, MSK:Normal, NEURO:Normal Objective vital signs Vital Sign Date Time Temp Pulse Resp B/P (MAP) Pulse Ox O2 Delivery O2 Flow Rate FiO2 03/24/25 08:00 82 17 97 Room Air* 0 21 03/24/25 05:00 98.0 134/59 (84) 98.0 Total Intake and Output 03/23/25 03/23/25 03/24/25 15:00 23:00 07:00 Intake Total 50 ml 300 ml 200 ml Output Total 50 ml 600 ml 225 ml Balance 0 ml -300 ml -25 ml medications Current Medications Medications Dose Ordered Sig/Lester Route Start Time Stop Time Status Last Admin Dose Admin Labetalol HCl 10 mg ONCE IV 03/20/25 10:15 UNV Cefazolin Sodium/ Dextrose 50 ml @ 50 mls/hr Q8HR IV 03/20/25 14:00 03/24/25 07:02 50 MLS/HR Metronidazole 100 ml @ 100 mls/hr Q8HR IV 03/20/25 14:00 03/24/25 05:42 100 MLS/HR Levetiracetam 100 ml @ 400 mls/hr BID IV 03/20/25 10:00 03/23/25 21:15 400 MLS/HR Labetalol HCl 10 mg [id number] PRN IV 03/20/25 10:45 03/20/25 23:59 Cancel Nitroglycerin 0.4 mg Q5MINP PRN SL 03/20/25 15:45 Morphine Sulfate 2 mg Q30M PRN IV 03/20/25 15:45 Ondansetron HCl 4 mg Q6HPRN PRN IV 03/20/25 15:45 03/21/25 12:32 4 MG Pantoprazole Sodium 40 mg DAILY IV 03/21/25 10:00 03/23/25 10:10 40 MG Labetalol HCl 10 mg Q4HP PRN IV 03/20/25 16:00 Hydralazine HCl 10 mg Q6HP PRN IV 03/20/25 21:00 03/22/25 01:13 10 MG Morphine Sulfate 4 mg Q4HPRN PRN IV 03/21/25 06:45 03/23/25 21:05 4 MG Phenol/Menthol 1 spr Q2HP PRN MT 03/21/25 09:15 UNV Promethazine HCl/ Dextromethorphan 5 ml Q4HP PRN NG 03/21/25 09:15 Phenol/Menthol 1 spr Q2HP PRN MT 03/21/25 09:30 03/21/25 12:32 1 SPR Heparin Sodium (Porcine) 5,000 units Q12HR SC 03/21/25 22:00 03/23/25 21:28 5,000 UNITS Sodium Chloride 1,000 ml @ 75 mls/hr [id number] IV 03/21/25 16:45 03/23/25 06:51 75 MLS/HR Ketorolac Tromethamine 15 mg Q6HPRN PRN IV 03/22/25 11:30 03/27/25 11:29 03/23/25 16:41 15 MG Examination: GENERAL:Normal, HEENT:Normal, NECK:Normal, LUNGS:Normal, CVS:Normal, ABDOMEN:Normal, MSK:Normal, SKIN:Normal, NEURO:Normal, :Normal laboratory and microbiology Laboratory Tests 03/24/25 06:53 Test 03/24/25 06:53 Range/Units Serum Glucose 90 74-106 mg/dL Microbiology Date/Time Source Procedure Growth Status 03/21/25 06:50 Nose MRSA Screen - Final Complete Problem List/Assessment/Plan Problem List/Assessment/Plan * Hypertension for which he will be placed on as-needed labetalol, lisinopril. * Seizure disorder. * Posttraumatic stress disorder. * Colon cancer, status post hemicolectomy for which he will be placed on IV fluids along with pain medication, advance diet * Advanced care planning: The patient is a full code-Time spent was 18 minutes. Plan discussed with: Patient, Spouse My Orders My Orders Orders - ARUN TORRES MD Procedure Category Date Status Time Discontinue Jiménez LEATHA 03/24/25 Transmitted Catheter 10:41 Discontinue Tele LEATHA 03/24/25 Transmitted 10:41 Transfer Orders XFER 03/24/25 Transmitted 10:41 Full Liq Diet DIET 03/24/25 Transmitted Lunch Lisinopril Tablet PHA 03/24/25 Transmitted (Zestril Tablet) 10:45 Lisinopril Tablet PHA 03/25/25 Transmitted (Zestril Tablet) 10:00 Gabapentin Capsule PHA 03/25/25 Transmitted (Neurontin Capsule) 10:00 Pantoprazole Tablet PHA 03/25/25 Transmitted (Protonix Tablet) 06:00 Metronidazole Tablet PHA 03/24/25 Transmitted (Flagyl Tablet) 14:00 * 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
[2025-03-24] MEDS: LISINOPRIL 5 MG TAB PO ONE (14:55)
[2025-03-24] MEDS: metroNIDAZOLE 500 MG TAB PO SCH (14:55)
[2025-03-24] MEDS: HYDROcodone-ACET 5/325MG TAB PO PRN (14:55)
[2025-03-25 01:00] VITALS: BP 142/70; PULSE 60; RESP 18; TEMP 98.3; O2SAT 96
[2025-03-25 05:00] VITALS: BP 145/64; PULSE 66; RESP 17; TEMP 99; O2SAT 96
[2025-03-25] MEDS: PANTOPRAZOLE 40 MG TAB PO SCH (06:21)
[2025-03-25 08:00] VITALS: PULSE 82; RESP 17; O2SAT 97
--- NOTE | 2025-03-25 08:10 | DVHPN2 ---
Subjective Date Seen: Mar 25, 2025 Post op day Post op day: 5 Patient reports: No new complaints Nursing reports: No new complaints General: Normal HNT: Normal Cardiovascular: Normal Respiratory: Normal Gastrointestinal: Normal Genitourinary: Normal Musculoskeletal: Normal Neurological: Normal Objective Vitals Vital Sign Date Time Temp Pulse Resp B/P (MAP) Pulse Ox O2 Delivery O2 Flow Rate FiO2 03/25/25 05:00 99.0 66 17 145/64 (91) 96 99.0 03/24/25 20:00 Room Air* 0 21 Total Intake and Output 03/24/25 03/24/25 03/25/25 15:00 23:00 07:00 Intake Total 970 ml 880 ml 750 ml Output Total 102 ml 10 ml Balance 970 ml 778 ml 740 ml Medications Current Medications Medications Dose Ordered Sig/Lester Route Start Time Stop Time Status Last Admin Dose Admin Labetalol HCl 10 mg ONCE IV 03/20/25 10:15 UNV Cefazolin Sodium/ Dextrose 50 ml @ 50 mls/hr Q8HR IV 03/20/25 14:00 03/25/25 06:21 50 MLS/HR Levetiracetam 100 ml @ 400 mls/hr BID IV 03/20/25 10:00 03/24/25 21:58 400 MLS/HR Labetalol HCl 10 mg [id number] PRN IV 03/20/25 10:45 03/20/25 23:59 Cancel Nitroglycerin 0.4 mg Q5MINP PRN SL 03/20/25 15:45 Morphine Sulfate 2 mg Q30M PRN IV 03/20/25 15:45 Ondansetron HCl 4 mg Q6HPRN PRN IV 03/20/25 15:45 03/21/25 12:32 4 MG Labetalol HCl 10 mg Q4HP PRN IV 03/20/25 16:00 Hydralazine HCl 10 mg Q6HP PRN IV 03/20/25 21:00 03/22/25 01:13 10 MG Morphine Sulfate 4 mg Q4HPRN PRN IV 03/21/25 06:45 03/24/25 22:00 4 MG Phenol/Menthol 1 spr Q2HP PRN MT 03/21/25 09:15 UNV Promethazine HCl/ Dextromethorphan 5 ml Q4HP PRN NG 03/21/25 09:15 Phenol/Menthol 1 spr Q2HP PRN MT 03/21/25 09:30 03/21/25 12:32 1 SPR Heparin Sodium (Porcine) 5,000 units Q12HR SC 03/21/25 22:00 03/24/25 21:59 5,000 UNITS Ketorolac Tromethamine 15 mg Q6HPRN PRN IV 03/22/25 11:30 03/27/25 11:29 03/24/25 18:49 15 MG Lisinopril 10 mg DAILY PO 03/25/25 10:00 Gabapentin 300 mg DAILY PO 03/25/25 10:00 Pantoprazole Sodium 40 mg DAILY@0600 PO 03/25/25 06:00 03/25/25 06:21 40 MG Metronidazole 500 mg Q8HR PO 03/24/25 14:00 03/25/25 06:21 500 MG Acetaminophen/ Hydrocodone Bitart 1 tab Q6HPRN PRN PO 03/24/25 10:45 03/24/25 14:55 1 TAB General: Normal, Well developed Head/Eyes: Normal ENT: Normal Neck: Normal Lungs: Normal Cardiovascular: Normal, Regular rate and rhythm Abdominal: Normal, Soft Musculoskeletal: Normal Extremities: Normal Skin: Normal Labs and Microbiology Laboratory Tests 03/24/25 06:53 Test 03/24/25 06:53 Range/Units Serum Glucose 90 74-106 mg/dL Ass/Plan Problem List * Hypertension for which he will be placed on as-needed labetalol, lisinopril. * Seizure disorder. * Posttraumatic stress disorder. * Colon cancer, status post hemicolectomy for which he will be placed on IV fluids along with pain medication, advance diet * Advanced care planning: The patient is a full code-Time spent was 18 minutes. Assessment/Plan s/p hemicolectomy POD#5 patient states wants to go home today abdomen soft, non distended, non tender wound clean dry and intact passing gas , BM , tolerating diet denies nausea or vomiting Plan: ok to shower ok to discharge per surgery point of view follow up in surgery clinic in two weeks Prognosis: Good Plan discussed with patient Visit Coding Surgery Date of Service if different f: Mar 25, 2025 Billing Provider: NANCY JOSÉ MD Surgery Visit Codes: [id number] INP/OBS CARE(HIGH) CHAN NOLASCO MUSIC HISTORIAN Mar 25, 2025 08:10
[2025-03-25 09:00] VITALS: BP 150/63; PULSE 68; RESP 16; TEMP 98; O2SAT 95
[2025-03-25] MEDS: GABAPENTIN 300 MG CAP PO SCH (09:50)
[2025-03-25] MEDS: LISINOPRIL 5 MG TAB PO SCH (09:55)
--- NOTE | 2025-03-25 10:48 | DVHDS2 ---
Discharge Summary Date of Admission Mar 20, 2025 at 15:42 Date of Discharge: Mar 25, 2025 Labs/Diagnostic Data: Laboratory Results Test 03/24/25 06:53 03/18/25 11:20 White Blood Count 5.2 10^3/uL (4.4-10.8) Red Blood Count 3.21 10^6/uL (4.5-5.90) Hemoglobin 8.7 g/dL (13.5-17.5) Hematocrit 25.7 % (41.0-53.0) Mean Corpuscular Volume 80.2 fL (80.0-100.0) Mean Corpuscular Hemoglobin 27.2 pg (28.0-32.0) Mean Corpuscular Hemoglobin Concent 33.9 g/dL (32.0-36.0) Red Cell Distribution Width 17.9 % (11.8-14.3) Platelet Count 190 10^3/uL (140-450) Mean Platelet Volume 8.3 fL (6.9-10.8) Neutrophils (%) (Auto) 66.7 % (37.0-80.0) Lymphocytes (%) (Auto) 23.2 % (10.0-50.0) Monocytes (%) (Auto) 7.1 % (0.0-12.0) Eosinophils (%) (Auto) 2.7 % (0.0-7.0) Basophils (%) (Auto) 0.3 % (0.0-2.0) Neutrophils # (Auto) 3.5 10 ^3/uL (1.6-8.6) Lymphocytes # (Auto) 1.2 10 ^3/uL (0.4-5.4) Monocytes # (Auto) 0.4 10 ^3/uL (0-1.3) Eosinophils # (Auto) 0.1 10 ^3/uL (0-0.8) Basophils # (Auto) 0 10 ^3/uL (0-0.2) Nucleated Red Blood Cells 0.1 % Sodium Level 143 mmol/L (136-145) Potassium Level 3.6 mmol/L (3.5-5.1) Chloride Level 109 mmol/L (98-107) Carbon Dioxide Level 25 mmol/L (20-31) Anion Gap 9 (5-15) Blood Urea Nitrogen 8 mg/dL (9-23) Creatinine 0.64 mg/dL (0.700-1.30) Glomerular Filtration Rate Calc 98 mL/min (>90) BUN/Creatinine Ratio 12.5 (10.0-20.0) Serum Glucose 90 mg/dL (74-106) Calcium Level 8.6 mg/dL (8.7-10.4) Total Bilirubin 0.2 mg/dL (0.2-1.0) Aspartate Amino Transferase (AST) 12 U/L (13-40) Alanine Aminotransferase (ALT) < 9 U/L (7-40) Alkaline Phosphatase 61 U/L (46-116) Total Protein 5.2 g/dL (5.7-8.2) Albumin 2.9 g/dL (3.2-4.8) Prothrombin Time 11.3 sec (9.3-11.8) Prothrombin Time INR 1.07 (0.9-1.15) Activated Partial Thromboplast Time 32.1 SEC (24.5-34.5) Urine Color Light-yellow (Yellow) Urine Clarity Clear (Clear) Urine pH 6.0 (5.0-9.0) Urine Specific [place] 1.006 (1.001-1.035) Urine Protein Negative (Negative) Urine Ketones Negative (Negative) Urine Blood Negative /uL (Negative) Urine Nitrite Negative (Negative) Urine Bilirubin Negative (Negative) Urine Urobilinogen Normal mg/dL (Negative) Urine Leukocyte Esterase Negative /uL (Negative) Urine RBC None seen /hpf (0 - 3) Urine Microscopic WBC 1 /HPF (0-3) Urine Squamous Epithelial Cells None seen /hpf (<5) Urine Bacteria None seen /hpf (None Seen) Urine Glucose Normal mg/dL (Normal) Other Laboratory Tests 03/24/25 06:53 Brief Hx & Hospital Course: see dictated note Condition at Discharge: Fair Final Diagnosis/Problems List colon surgery Discharge Disposition: Home Discharge Instruct/Medications Diet: Regular Activity: No Restrictions, As Tolerated Follow Up/Referral: schedule appt with dr Garcia in 1 wk Medications: resume home meds script in chart Scheduled Gabapentin (Neurontin), Unknown Dose PO QPM, (Reported) Miscellaneous Medications Ferrous Sulfate (Iron), Unknown Dose PO, (Reported) Hydrocodone-Acetaminophen (Hydrocodone/Acetaminophen 5-325 mg), 1 TAB PO, (Reported) Lisinopril (Lisinopril), Unknown Dose PO, (Reported) Tramadol Hcl (Tramadol Hcl), 50 MG PO, (Reported) Discharge Statement: "Patient was advised to return to the ER or call 911 if any headaches, dizziness, shortness of breath, chest pain, abdominal pain, bleeding, fevers, or worsening of medical condition. Patient was counseled about treatment plan, medications, possible side effects, patientverbalized understanding. All questions were answered to the best of my ability. This discharge took greater then 30 minutes in planning, reviewing documentation, counseling the patient, and discussing with other team members." ASSESSMENT ASSESSMENT Assessment colon surgery Date of Service: Mar 25, 2025 Billing Provider: ARUN TORRES MD Common Visit Codes: [id number] DISCH DAY >30min ARUN TORRES MD Mar 25, 2025 10:48
--- NOTE | 2025-03-25 11:07 | DVHDS ---
DATE OF DISCHARGE: 03/25/2025 HISTORY OF PRESENT ILLNESS: The patient is a 75-year-old gentleman who was admitted after he underwent left hemicolectomy for left colon cancer and has a history of hypertension and PTSD. HOSPITAL COURSE: The patient did well postoperatively. The patient's hemoglobin at time of discharge is 8.7. He has been having bowel activity and is tolerating an oral diet. He has now been cleared for discharge and will be discharged home to resume his home medications as well as to be on Calypso p.r.n. for pain. He will follow up with Dr. Garcia in 1 week. FINAL DIAGNOSES: * Hypertension. * Posttraumatic stress disorder. * History of colon cancer status post left hemicolectomy. Time spent in discharge planning and review of plan with the patient and at the bedside was 38 minutes. MD CINDY Clemons/ADDIE TID: [id number] RECEIPT: [id number]
[2025-03-25 11:44] VITALS: BP 150/63; TEMP 36.7
== END 2025-03-25 12:15 | disposition home health service (06) | DRG 331 ==
LOC: SUR 06:12 → OVERFLOW 15:42 → DOU 16:22 → EAST 03-22 16:56 → TELE-EAST 03-22 16:57 → EAST 03-24 20:46
PROVIDERS: ADMIT Internal Medicine; ATTEND Internal Medicine
PROC: 0DTG0ZZ Resection of Left Large Intestine, Open Approach (ICD-10-PCS; principal; 2025-03-20 08:29)
DX: C18.6 Malignant neoplasm of descending colon (principal); F43.10 Post-traumatic stress disorder, unspecified; G40.909 Epilepsy, unspecified, not intractable, without status epilepticus; I10 Essential (primary) hypertension; K76.9 Liver disease, unspecified; Z79.899 Other long term (current) drug therapy
CPT/HCPCS: 36415; 71045; 80053; 81001; 85025; 85610; 85730; 86850; 86900; 86901; 87081; 97110; 97116; 97163; G0378; J0131; J1100; J1885; J2250; J2405; J2470; J2704; J3490